=== PATIENT | male | born 1985 | race Caucasian/White ===

== ENCOUNTER 2021-11-20 18:08 | Emergency (ER) | payer BC ==
[2021-11-20 18:28] VITALS: RESP 18; TEMP 98.2
[2021-11-20] MEDS ORDERED: SODIUM CHLORIDE 0.9% 1,000 ML IV STA (18:31)
[2021-11-20 18:32] VITALS: BP 128/100; PULSE 105
--- NOTE | 2021-11-20 18:33 | ED ---
General Adult HPI - General Chief complaint: Arrhythmia/Palpitations Stated complaint: Chest Pain/Fast HR/history of SVT Time Seen by Provider: 11/20/21 18:25 Source: patient Mode of arrival: ambulatory Limitations: no limitations - History of Present Illness Initial comments: Dictation was produced using [employer] dictation software. please excuse any grammatical, word or spelling errors. Chief Complaint: 36-year-old male past medical history of SVT presents to the emergency Department with 1 hour of palpitations History of Present Illness: She is 28-year-old male who has past medical history of SVT. Patient states that approximately 1 hour prior to arrival he was putting his leftover food in the microwave when all of a sudden he began to feel palpitations. His history of SVT. He tried to perform Valsalva with no success. He was brought to the emergency room by his father. Patient states she's been under a lot of stress recently. Last episode of SVT had was 5-6 years ago. For some he had SVT was 10 years ago. 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 He was never prescribed any medications prevent the onset of SVT. Upon being placed into trauma bay #1 patient was lacrosse coach threw a Valsalva maneuver with nurse with successful cardioversion. Since then patient states that he feels back to normal. The ROS documented in this emergency department record has been reviewed and confirmed by me. Those systems with pertinent positive or negative responses have been documented in the HPI. All other systems are other negative and/or noncontributory. PHYSICAL EXAM: General Impression: Alert and oriented x3, not in acute distress HEENT: Normocephalic atraumatic, extra-ocular movements intact, pupils equal and reactive to light bilaterally, mucous membranes moist. Cardiovascular: Heart regular rate and rhythm Chest: Able to complete full sentences, no retractions, no tachypnea Abdomen: abdomen soft, non-tender, non-distended, no organomegaly Musculoskeletal: Pulses present and equal in all extremities, no peripheral edema Motor: no focal deficits noted Neurological: CN II-XII grossly intact, no focal motor or sensory deficits noted Skin: Intact with no visualized rashes Psych: Normal affect and mood ED course: 36-year-old male presents emergency department with clinical presentation consistent with SVT. Vital signs upon arrival shows heart rate of 220. Blood Pressure is normal. Patient had successful cardioversion with Valsalva maneuver. Laboratory evaluation obtained. CBC metabolic panel is unremarkable. Troponin is 0.018. Patient observed in emergency department for approximately 3 hours. Monitor is reviewed showing stable heart rate at approximately 102. Patient reevaluated at bedside and notified and found to be in stable medical condition. Discussed with patient possibly starting metoprolol at a low dose to prevent SVTs. Patient does not feel this is necessary and would rather follow up with his primary care doctor to discuss stopping started on beta blockers. Patient counseled on Valsalva maneuvers if he begins experiencing palpitations again. Otherwise return precautions discussed. Patient is understandable and agreeable. EKG interpretation: Ventricular rate 101, sinus tachycardia,. Interval 169, QS 91, QTc 356. No MO prolongation, no QTC prolongation, no ST or T-wave changes noted. No old EKG for comparison Overall, this EKG is unremarkable - Related Data Home Medications Medication Instructions Recorded Confirmed No Known Home Medications 11/20/21 11/20/21 Allergies Allergy/AdvReac Type Severity Reaction Status Date / Time No Known Allergies Allergy Verified 11/20/21 19:24 Review of Systems ROS Statement: Those systems with pertinent positive or pertinent negative responses have been documented in the HPI. ROS Other: All systems not noted in ROS Statement are negative. Past Medical History Additional Past Medical History / Comment(s): SVT General Exam Limitations: no limitations Course Vital Signs 11/20/21 11/20/21 18:10 18:31 Temperature 98.2 F Pulse Rate 220 H 105 H Respiratory 18 18 Rate Blood Pressure 146/74 128/100 O2 Sat by Pulse 98 96 Oximetry Medical Decision Making - Lab Data Result diagrams: 11/20/21 20:34 11/20/21 18:32 Lab Results 11/20/21 11/20/21 11/20/21 Range/Units 18:32 18:32 20:34 WBC 6.6 (3.8-10.6) k/uL RBC 5.28 (4.30-5.90) m/uL Hgb 14.0 (13.0-17.5) gm/dL Hct 43.4 (39.0-53.0) % MCV 82.2 (80.0-100.0) fL MCH 26.6 (25.0-35.0) pg MCHC 32.3 (31.0-37.0) g/dL RDW 12.9 (11.5-15.5) % Plt Count 187 (150-450) k/uL MPV 9.0 Neutrophils % 73 % Lymphocytes % 20 % Monocytes % 4 % Eosinophils % 2 % Basophils % 1 % Neutrophils # 4.8 (1.3-7.7) k/uL Lymphocytes # 1.3 (1.0-4.8) k/uL Monocytes # 0.3 (0-1.0) k/uL Eosinophils # 0.1 (0-0.7) k/uL Basophils # 0.0 (0-0.2) k/uL Sodium 139 (137-145) mmol/L Potassium 3.8 (3.5-5.1) mmol/L Chloride 104 (98-107) mmol/L Carbon Dioxide 25 (22-30) mmol/L Anion Gap 10 mmol/L BUN 18 (9-20) mg/dL Creatinine 0.89 (0.66-1.25) mg/dL Est GFR (CKD-EPI)AfAm >90 (>60 ml/min/1.73 sqM) Est GFR (CKD-EPI)NonAf >90 (>60 ml/min/1.73 sqM) Glucose 124 H (74-99) mg/dL Calcium 9.7 (8.4-10.2) mg/dL Magnesium 1.9 (1.6-2.3) mg/dL Troponin I 0.018 (0.000-0.034) ng/mL Disposition Clinical Impression: SVT (supraventricular tachycardia) Disposition: HOME SELF-CARE Condition: Fair Instructions (If sedation given, give patient instructions): Heart Palpitations (ED) Is patient prescribed a controlled substance at d/c from ED?: No Referrals: Jluis Hernandes DO [Primary Care Provider] - 1-2 days Time of Disposition: 21:09
[2021-11-20 19:24] LABS: African American GFR (CKD) >90 (>60 ml/min/1.73 sqM); Anion Gap 10 mmol/L; Blood Urea Nitrogen 18 mg/dL (9-20); Calcium 9.7 mg/dL (8.4-10.2); Carbon Dioxide 25 mmol/L (22-30); Chloride 104 mmol/L (98-107); Glucose 124 mg/dL (74-99); Magnesium 1.9 mg/dL (1.6-2.3); Non-African American GFR(CKD) >90 (>60 ml/min/1.73 sqM); Potassium 3.8 mmol/L (3.5-5.1); Sodium 139 mmol/L (137-145)
[2021-11-20 20:52] LABS: Basophils % (A) 1 %; Eosinophils # (A) 0.1 k/uL (0-0.7); Eosinophils % (A) 2 %; HCT 43.4 % (39.0-53.0); Lymphocytes # (A) 1.3 k/uL (1.0-4.8); Lymphocytes % (A) 20 %; MCH 26.6 pg (25.0-35.0); MCHC 32.3 g/dL (31.0-37.0); MCV 82.2 fL (80.0-100.0); Monocytes # (A) 0.3 k/uL (0-1.0); Monocytes % (A) 4 %; Neutrophils # (A) 4.8 k/uL (1.3-7.7); Neutrophils % (A) 73 %; Platelet Count 187 k/uL (150-450); RBC 5.28 m/uL (4.30-5.90); RDW 12.9 % (11.5-15.5); WBC 6.6 k/uL (3.8-10.6)
== END 2021-11-20 21:35 | disposition home or self-care (01) ==
LOC: EC 18:08
DX: I47.1 Supraventricular tachycardia (principal)
CPT/HCPCS: 36415; 80048; 83735; 84484; 85025; 93005; 96360; 99285

== ENCOUNTER → 2024-10-07 | Outpatient (CLI) | payer BC ==
--- NOTE | 2024-10-07 11:37 | CA ---
Stress Echo Report Harman Lange Age: 39 Gender: M : 1985 Exam Date: 10/07/2024 10:13 Exam Location: [facility] Ht (in): 70 Wt (lb): 205 Ordering Physician: Jayjay Gonzalez DO Referring Physician: Jayjay Gonzalez DO Salesperson Sheet Music: Lois Vale RDCS Technologist Procedure CPT: Indication: R07.9 CHEST PAIN, UNSPECIFIED ICD-9 Codes: Rhythm: Patient History: CHEST PAIN Cardiac Medications: NONE Medications in past 24 hours: Contrast: Stress Results Protocol: Osmin Total dose(mL): Exercise Duration (min:sec): 9:[address] Depression (mm): 0 Angina Score: 0 Alfonso Score: 9.75 METS: 11.3 Resting HR: 79 Resting BP: 150 / 103 Peak HR: 168 Peak BP: 206 / 97 Max Predicted HR: 179 94 % Max Predicted HR Target HR: 152 Double Product: [id number] Stress Summary: The patient's target heart rate was achieved BP Response: Reason for Termination: MAX EXERTION/TARGET HR Cardiac Symptoms: NO SYMPTOMS ECG Analysis Resting ECG: Normal sinus rhythm, normal ECG Stress ECG: No abnormal ST/T wave changes with exercise Arrhythmia: None Echo Analysis Resting Echo: Normal resting echocardiogram. Peak Echo Analysis: Normal wall thickening and motion with decrease cavity size MEASUREMENTS (Male/Female) Normal Values CONCLUSIONS Patient falls into low-risk group (DTS >= +5). This associates the patient with an annual CV mortality <= 0.5%. Good exercise tolerance with normal electrocardiographic response to exercise Normal stress echocardiogram with no evidence of stress-induced ischemia Dr. Shankar Bradley MD (Electronically Signed) Final Date: 07 October 2024 11:36
== END | disposition home or self-care (01) ==
LOC: RADNMMAIN 09:26
PROVIDERS: ATTEND Family Medicine
DX: R07.9 Chest pain, unspecified (principal)
CPT/HCPCS: 93351